=== PATIENT | male | born 1955 | race Caucasian/White ===

== ENCOUNTER 2019-09-21 00:02 | Observation (INO) | payer BC ==
[2019-09-21 00:32] LABS: #Basophils 0.1 thou/uL (0.0-0.2); #Eosinphils 0.3 thou/uL (0.0-0.7); RBC Distribution Width 11.8 % (11.5-14.5)
[2019-09-21 00:45] LABS: #Lymphocytes 2.2 thou/uL (1.20-3.40); #Neutrophils 5.8 thou/uL (1.40-6.50); %Basophils 0.9 % (0.0-1.0); %Eosinophils 3.2 % (0.0-10.0); %Lymphocytes 23.4 % (21.0-51.0); %Monocytes 10.5 % (0.0-10.0); Hemoglobin 14.4 g/dL (14.0-18.0); Mean Corpuscular HGB CONC 33.1 g/dL (32.0-36.0); Mean Corpuscular Hemoglobin 30.7 pg (27.0-31.0); Mean Corpuscular Volume 92.7 fL (78.0-98.0); Platelet Count 193 thou/uL (130-400); Red Blood Cell (RBC) Count 4.71 mill/uL (4.70-6.10); White Blood Cell (WBC) Count 9.4 thou/uL (4.8-10.8)
[2019-09-21 00:55] LABS: ALT (SGPT) 19 U/L (8-55); AST (SGOT) 25 U/L (5-34); Alkaline Phosphatase 79 U/L (40-110); Anion Gap 11 mmol/L (10-20); BUN (Urea Nitrogen) 21 mg/dL (8.4-25.7); Bilirubin, Total 0.4 mg/dL (0.2-1.2); Calc. Creatinine Clearance 0 mL/min (70-130); Calcium 9.6 mg/dL (7.8-10.44); Carbon Dioxide 28 mmol/L (23-31); Chloride 102 mmol/L (98-107); Estimated GFR-MDRD 69; Globulin 2.8 g/dL (2.4-3.5); Glucose 108 mg/dL (80-115); Protein, Total 6.8 g/dL (5.8-8.1); Sodium 137 mmol/L (136-145)
[2019-09-21 01:17] LABS: CKMB 2.1 ng/mL (0-6.6)
[2019-09-21] MEDS ORDERED: Aspirin Chewable 81 MG TAB ONE (01:19)
[2019-09-21] MEDS ORDERED: Nitroglycerin 0.4 MG TAB (25 Tab Bottle) PO PRN (01:35)
--- NOTE | 2019-09-21 02:13 | PDOC.EVN ---
Event Note - Event Note Event Note: [id number] HP
[2019-09-21 02:58] VITALS: BMI 30.7
[2019-09-21] MEDS ORDERED: Enoxaparin Sodium 100 MG/ML SYRINGE SC SCH ×2 (03:15→16:00)
--- NOTE | 2019-09-21 03:19 | HP ---
CHIEF COMPLAINT: Chest pain. HISTORY OF PRESENT ILLNESS: Mr. Nichols is a 64-year-old male with past medical history of hypertension, hyperlipidemia, and family history of coronary artery disease, who presents to the emergency room with chest pain, pressure in nature, started after dinner around 8:30 p.m. The patient felt flushed with associated chest pressure, went to check his blood pressure, and he noticed that his heart rate was fast in the 130s. The patient denies feeling palpitations, nausea, vomiting, fever, or chills. The patient reports history of ? malignant hypertension, seen by log haul operator, Dr. Knapp. The patient reports father of ID at the age of 64. Given the patient's presentation and risk factors, the patient is being admitted to the hospital for further management. PAST MEDICAL HISTORY: 1. Hypertension. 2. Hyperlipidemia. PAST SURGICAL HISTORY: 1. Right shoulder replacement. 2. Right ankle repair. SOCIAL HISTORY: Drinks socially. He chews tobacco. FAMILY HISTORY: Father of ID at the age of 54. ALLERGIES: NO KNOWN ALLERGIES. HOME MEDICATIONS: Please see home medication reconciliation form for updated medications. REVIEW OF SYSTEMS: Review of 14 systems negative except what is mentioned in History of Present Illness. PHYSICAL EXAMINATION: GENERAL: The patient is awake, alert, in mild distress. VITAL SIGNS: Blood pressure 119/55, pulse is 75, respiratory rate is 18, temperature 98.3, and pulse oximetry 100% on room air. HEENT: Head and neck; normocephalic, atraumatic. NECK: Supple. No JVD. CHEST: Fair bilateral air entry. HEART: S1, S2. Regular. ABDOMEN: Soft, nontender. Bowel sounds present. NEUROLOGIC: Awake, alert, and oriented x3. PSYCH: Normal mood. EXTREMITIES: No clubbing or cyanosis. GENITOURINARY: No suprapubic tenderness. No flank tenderness. LABORATORY DATA: Troponin is indeterminate at 0.031. Chest x-ray, not available for review at this time, but as per ED physician, no acute findings. EKG showed sinus rhythm with nonspecific changes. ASSESSMENT: 1. Chest pain, rule out acute coronary syndrome. 2. Indeterminate troponin, mildly elevated. 3. Family history of coronary artery disease. 4. Hypertension. 5. Hyperlipidemia. PLAN: 1. Admit. 2. Telemetry monitoring. 3. Aspirin. 4. Serial troponins. 5. Cardiac stress test if his troponins continued to be indeterminate or negative. 6. Consult the patient's log haul operator for evaluation and further recommendations. 7. Reconcile home medications. 8. DVT prophylaxis as appropriate. The patient was given one dose of Lovenox for now, reassess in a.m. 9. Expected length of stay at least 1 midnight if the patient is stable and further workup negative. Job ID: [id number]
[2019-09-21 07:07] LABS: Troponin I 0.073 ng/mL (< 0.028)
[2019-09-21] MEDS ORDERED: Docusate 100 MG CAP PO PRN (07:23)
[2019-09-21] MEDS ORDERED: Melatonin 3 MG TAB PO PRN (07:23)
[2019-09-21] MEDS ORDERED: diphenhydrAMINE 25 MG CAP PO PRN (07:23)
[2019-09-21] MEDS ORDERED: Morphine 2 MG/ML SYRINGE SLOW IVP PRN (07:23)
[2019-09-21] MEDS ORDERED: Benzonatate 100 MG CAP PO PRN (07:23)
[2019-09-21] MEDS ORDERED: Labetalol HCl 100 MG/20 ML VIAL SLOW IVP PRN (07:23)
[2019-09-21] MEDS ORDERED: Acetaminophen 325 MG TAB PO PRN (07:24)
[2019-09-21] MEDS ORDERED: Ondansetron PF 4 MG/2 ML Vial IVP PRN (07:24)
[2019-09-21] MEDS: Hydrochlorothiazide 25 MG TAB PO SCH (08:35)
[2019-09-21] MEDS: Aspirin 325 mg Enteric Coated Tablet PO SCH (08:35)
[2019-09-21] MEDS: hydrALAZINE 25 MG TAB PO SCH ×2 (08:35→20:32)
[2019-09-21] MEDS: Lisinopril 20 MG TAB PO SCH (08:40)
[2019-09-21] MEDS: Carvedilol 25 MG TAB PO SCH ×2 (08:40→20:31)
[2019-09-21] MEDS ORDERED: ADENOSINE 60 MG/20 ML VIAL ONE (09:48)
--- NOTE | 2019-09-21 10:40 | RAD ---
PORTABLE CHEST: HISTORY: Elevated heart rate with chest pressure. COMPARISON: 10/08/2012 exam. FINDINGS: Heart size appears slightly enlarged. There are atherosclerotic changes of the aorta. The lungs are clear of infiltrates. No signs of failure. IMPRESSION: Minimal cardiomegaly. POS: TY
--- NOTE | 2019-09-21 12:53 | NM ---
MYOCARDIAL PERFUSION SCAN WITH SPECT IMAGING: HISTORY: Chest pain. FINDINGS: Examination was performed using 31.7 mCi 99m Technetium sestamibi on the stress and 10.3 mCi on the r esting images. This shows a normal distribution of the radiopharmaceutical without signs of ischemia or scar. WALL MOTION: There is symmetric contractility to the ventricle. LEFT VENTRICULAR EJECTION FRACTION: Calculated left ventricular ejection fraction was 66%. IMPRESSION: Unremarkable myocardial perfusion scan. POS: TY
--- NOTE | 2019-09-21 13:50 | PDOC.EVN ---
Event Note - Event Note Event Note: Seen and examined on the medical unit with telemetry. Patient describes episodes of chest pressure and palpitations. Nuclear medicine stress test was pending this a.m., later found to be negative for reversible ischemia. Patient will require overnight monitoring with continuous telemetry, with patient's heart rate varying from 60s to 130's in the home setting it is possible he is having rhythm abnormality as cause of his symptoms. If initial inpatient telemetry monitoring is not conclusive he may require outpatient Holter monitoring for extended course. Echocardiogram added. We will wait for input from cardiology.
[2019-09-21] MEDS ORDERED: Atorvastatin Calcium 20 MG TAB PO SCH (21:00)
[2019-09-22] MEDS: hydrALAZINE 25 MG TAB PO SCH (09:00)
[2019-09-22] MEDS ORDERED: Enoxaparin Sodium 100 MG/ML SYRINGE SC SCH (09:00)
[2019-09-22] MEDS: Aspirin 325 mg Enteric Coated Tablet PO SCH (09:35)
[2019-09-22] MEDS: Hydrochlorothiazide 25 MG TAB PO SCH (09:36)
[2019-09-22] MEDS: Carvedilol 25 MG TAB PO SCH (09:36)
[2019-09-22] MEDS: Lisinopril 20 MG TAB PO SCH (09:36)
[2019-09-22 11:50] VITALS: BP 126/67; TEMP 97.5
--- NOTE | 2019-09-22 15:07 | CON ---
DATE OF CONSULTATION: 09/22/2019 REASON FOR CONSULTATION: Chest pain and tachycardia. PRIMARY LOAN INTERVIEWER: Dr. Knapp. HISTORY OF PRESENT ILLNESS: Mr. Nichols is a pleasant 64-year-old gentleman who has been seen and evaluated several years ago by Dr. Rony Knapp. He recently presented with chest pressure. He did have associated tachycardia with heart rate up to 130 beats per minute. He was at home and decided to proceed to [facility], where he again got his blood pressure and heart rate. Based on the above, he decided to proceed to the emergency room. PAST MEDICAL HISTORY: Hypertension and hyperlipidemia. PAST SURGICAL HISTORY: Shoulder replacement and ankle repair. SOCIAL HISTORY: No current history of smoking. Drinks socially. ALLERGIES: NONE. HOME MEDICATIONS: 1. Hydralazine. 2. Lisinopril. 3. Hydrochlorothiazide. 4. Carvedilol. 5. Atorvastatin. REVIEW OF SYSTEMS: A 10-point review of systems is reviewed as above, otherwise negative. PHYSICAL EXAMINATION: GENERAL: Patient is a pleasant male, who is in no acute distress. The patient appears their stated age. VITAL SIGNS: Blood pressure 126/67, pulse 56, and temperature 97.5. NEUROLOGIC: The patient is alert and oriented x3 with no focal neurologic deficits. HEENT: Sclerae without icterus. Mouth has moist mucous membranes with normal pallor. NECK: No JVD. Carotid upstroke brisk. No bruits bilaterally. LUNGS: Clear to auscultation with unlabored respirations. BACK: No scoliosis or kyphosis. CARDIAC: Regular rate and rhythm with normal S1 and S2. No S3 or S4 noted. No significant rubs, murmurs, thrills, or gallops noted throughout the precordium. PMI is not displaced. There is no parasternal heave. ABDOMEN: Soft, nontender, nondistended. No peritoneal signs present. No hepatosplenomegaly. No abnormal striae. EXTREMITIES: 2+ femoral and 2+ dorsalis pedis pulses. No cyanosis, clubbing, or edema. SKIN: No gross abnormalities. Please insert above new patient. PERTINENT LABORATORY DATA: Hemoglobin 14.4. Peak troponin 0.073, creatinine 1.08, GFR 69. TSH 1.19. EKG, normal sinus rhythm, normal EKG. Stress/rest myocardial perfusion study. LVEF 66% with no ischemia present. IMPRESSION: 1. Chest pressure. 2. Tachycardia. 3. Hypertension. RECOMMENDATIONS: I discussed the recent findings on stress EKG and echo. All appeared to be within normal limits. I discussed proceeding with coronary angiography versus continued medical therapy and observation. He opts for medical therapy and observation. I would recommend a 3-week event recorder to assess for any significant dysrhythmias while at home. Mr. Nichols states he would like to find a hand surgeon at [facility] in [place]. He would like to switch services over to [facility]. Plan is to follow up with Mr. Nichols in the next week to 2 weeks. Job ID: [id number]
--- NOTE | 2019-09-22 19:49 | PDISCHARGE ---
Discharge - Disposition Disposition: HOME - Patient Instructions Pre-Printed Education: Nonspecific Chest Pain, [id number], Hypertension, Easy -to-Read Care Plan Goals: FOCUS: Transition from Acute Care after Discharge GOAL: Successful transition to care in the community YOUR TASKS: (1) review all information outlined in your discharge packet (2) follow any instructions outlined in your discharge packet (3) contact your primary care provider if you have questions or need additional assistance See patient discharge instruction sheet for detailed teaching. Patient verbalizes understanding of medications and is able to verbalize follow-up care. See Discharge Plan for additional discharge information. Patient secured in private vehicle prior to departure. - Referrals and PCP Follow-Up Referrals and PCP Follow-Up: Kayden Massey MD [Active] - ( DIRECTED) - Activity Instructions Activity:: Activity as Tolerated - Nourishment Instructions Nourishment:: Regular Diet Course - Course Orders, Labs, Meds: Presenting initially with chest pain. Found to have an associated tachycardia cardia with a heart rate up into the 130s. Unremarkable initial cardiac work- up. Had a normal stress and echo test without ischemia demonstrated. Cardiology recommending a 3-week event monitor to assess for any significant dysrhythmias while at home and outpatient follow-up. At the time of discharge, no longer had any symptoms of chest pain or tachycardia.
--- NOTE | 2019-09-22 19:52 | PDOC.BPN ---
- Brief Progress Note DISCHARGE SUMMARY LIVE [facility] Discharge Patient Name: DARIEL AU Date of : 1955 Patient Status: Observation Attending Provider: Aneudy Downs Date: 09/22/19 19:48 Initialization Date: 09/22/19 19:48 Discharge - Disposition Disposition: HOME - Patient Instructions Pre-Printed Education: Nonspecific Chest Pain, [id number], Hypertension, Easy -to-Read Care Plan Goals: FOCUS: Transition from Acute Care after Discharge GOAL: Successful transition to care in the community YOUR TASKS: (1) review all information outlined in your discharge packet (2) follow any instructions outlined in your discharge packet (3) contact your primary care provider if you have questions or need additional assistance See patient discharge instruction sheet for detailed teaching. Patient verbalizes understanding of medications and is able to verbalize follow-up care. See Discharge Plan for additional discharge information. Patient secured in private vehicle prior to departure. - Referrals and PCP Follow-Up Referrals and PCP Follow-Up: Kayden Massey MD [Active] - ( DIRECTED) - Activity Instructions Activity:: Activity as Tolerated - Nourishment Instructions Nourishment:: Regular Diet Course - Course Orders, Labs, Meds: Presenting initially with chest pain. Found to have an associated tachycardia cardia with a heart rate up into the 130s. Unremarkable initial cardiac work- up. Had a normal stress and echo test without ischemia demonstrated. Cardiology recommending a 3-week event monitor to assess for any significant dysrhythmias while at home and outpatient follow-up. At the time of discharge, no longer had any symptoms of chest pain or tachycardia.
--- NOTE | 2019-09-28 17:33 | EKG ---
Test Reason : EMERGENCY Blood Pressure : / mmHG Vent. Rate : 079 BPM Atrial Rate : 079 BPM P-R Int : 120 ms QRS Dur : 100 ms QT Int : 342 ms P-R-T Axes : 058 -20 074 degrees QTc Int : 392 ms Normal sinus rhythm RSR' or QR pattern in V1 suggests right ventricular conduction delay Borderline ECG Confirmed by ADIS BENITES M.D. ([id number]), editor in chief newspaper MICHELLE BARRETT ([id number]) on 09/28/2019 5:33:14 PM Referred By: Confirmed By:ADIS BENITES M.D.
== END 2019-09-22 14:41 | disposition home or self-care (01) ==
LOC: ERS 00:02 → 2SW 02:53
PROVIDERS: ADMIT Internal Medicine; ATTEND Internal Medicine
DX: R07.89 Other chest pain (principal); R00.0 Tachycardia, unspecified; R79.89 Other specified abnormal findings of blood chemistry; I10 Essential (primary) hypertension; E78.5 Hyperlipidemia, unspecified; F17.220 Nicotine dependence, chewing tobacco, uncomplicated; Z82.49 Family history of ischemic heart disease and other diseases of the circulatory system; Z79.899 Other long term (current) drug therapy; Z91.041 Radiographic dye allergy status
CPT/HCPCS: 36415; 71045; 78452; 80053; 82553; 84443; 84484; 85025; 93005; 93017; 93306; 94760; 96372; A9500; G0378; J0153; J1650